=== PATIENT | female | born 1995 | race Caucasian/White ===

== ENCOUNTER 2019-01-10 10:08 | Outpatient (CLI) | payer OTHER ==
[~2019-01-10 10:08] MED LIST: FLUCONAZOLE150 MG PO; Synthroid PO
== END 2019-01-10 10:14 | disposition home or self-care (01) ==
LOC: LAB 10:08
DX: E03.8 Other specified hypothyroidism (principal); I10 Essential (primary) hypertension; Z00.00 Encounter for general adult medical examination without abnormal findings; E78.00 Pure hypercholesterolemia, unspecified; Z11.4 Encounter for screening for human immunodeficiency virus [HIV]; E55.9 Vitamin D deficiency, unspecified; Z21 Asymptomatic human immunodeficiency virus [HIV] infection status; R79.89 Other specified abnormal findings of blood chemistry

== ENCOUNTER → 2020-07-26 | Outpatient (CLI) | payer OTHER | END | disposition home or self-care (01) | LOC: MRI 09:56 | PROVIDERS: ATTEND Neuromusculoskeletal Medicine & OMM | DX: G93.89 Other specified disorders of brain (principal); D49.6 Neoplasm of unspecified behavior of brain | CPT/HCPCS: 70553 ==